=== PATIENT | female | born 1945 | race Caucasian/White ===

== ENCOUNTER → 2017-01-24 | Outpatient (CLI) | payer MEDICARE, BC ==
--- NOTE | 2017-01-24 14:20 | RAD ---
DATE: January 24, 2017 EXAM: DIGITAL SCREEN BILAT W/CAD HISTORY: Routine screening. COMPARISON: March 23, 2013. TECHNIQUE: 2D digital CC and MLO views of each breast were obtained. This study was interpreted with the benefit of Computerized Aided Detection (CAD). FINDINGS: The breast parenchyma demonstrates scattered fibroglandular densities, category B. There is no worrisome mass or area of architectural distortion. There are a few benign-appearing calcifications. There are no suspicious groupings of microcalcifications. IMPRESSION: Benign findings. BI-RADS CATEGORY: 2 BENIGN FINDING RECOMMENDED FOLLOW-UP: 12M 12 MONTH FOLLOW-UP PQRS compliance statement: Patient information was entered into a reminder system with a target due date for the next mammogram. Mammography is a sensitive method for finding small breast cancers, but it does not detect them all and is not a substitute for careful clinical examination. A negative mammogram does not negate a clinically suspicious finding and should not result in delay in biopsying a clinically suspicious abnormality. "Our facility is accredited by the [employer] Mammography Program."
== END | disposition home or self-care (01) ==
LOC: MAMMO 10:52
PROVIDERS: ATTEND Nurse Practitioner Family
DX: Z12.31 Encounter for screening mammogram for malignant neoplasm of breast (principal)
CPT/HCPCS: G0202; 77067

== ENCOUNTER 2018-02-13 09:12 | Emergency (ER) | payer MEDICARE, BC ==
[~2018-02-13] VITALS: Ht 154.9 cm; Wt 57.6 kg
--- NOTE | 2018-02-13 09:53 | PHYS DOC ---
Past History Past Medical History: High Cholesterol, Hypertension Smoking: Cigarettes, Less than 1pk/day Adult General Chief Complaint Chief Complaint: KNEE INJURY HPI HPI Patient is a 72 year old female who presents with complaining of injury to right knee. Patient states she had an accidental fall last night at her home and injured his right knee without loss of consciousness. Patient states she had the right knee edema and pain with bearing weight that getting worse today. Patient states she has osteoporosis and chronic back pain that getting worse today without significant injury to her back. Patient denies focal neuro deficit , fever and chills, nausea and vomiting. Review of Systems Review of Systems Constitutional: Denies fever or chills [] Eyes: Denies change in visual acuity, redness, or eye pain [] HENT: Denies nasal congestion or sore throat [] Respiratory: Denies cough or shortness of breath [] Cardiovascular: No additional information not addressed in HPI [] GI: Denies abdominal pain, nausea, vomiting, bloody stools or diarrhea [] : Denies dysuria or hematuria [] Musculoskeletal: Denies back pain, reports joint pain [] Integument: Denies rash or skin lesions [] Neurologic: Denies headache, focal weakness or sensory changes [] Endocrine: Denies polyuria or polydipsia [] All other systems were reviewed and found to be within normal limits, except as documented in this note. Current Medications Current Medications Current Medications Medications (Trade) Dose Ordered Sig/Thalia Start Time Stop Time Status Last Admin Dose Admin Acetaminophen/ Hydrocodone Bitart (Lortab 5/325) 1 tab 1X ONCE 02/13/18 10:00 02/13/18 10:01 Allergies Allergies Allergies Uncoded Allergies Type Severity Reaction Last Updated Verified ibuprophen Allergy Intermediate increased b/p 02/13/18 Physical Exam Physical Exam Constitutional: Well developed, well nourished, mild distress, non-toxic appearance. [] HENT: Normocephalic, atraumatic Eyes: PERRLA, EOMI, conjunctiva normal, no discharge. [] Neck: Normal range of motion, no tenderness, supple, no stridor. [] Cardiovascular:Heart rate regular rhythm, no murmur [] Lungs & Thorax: Bilateral breath sounds clear to auscultation [] Skin: Warm, dry, no erythema, no rash. [] Back: No midline right knee with moderate edema without deformity, limited range of motion with pain, no tenderness in the hip or ankle. Extremities: No tenderness, no cyanosis, no clubbing, ROM intact, no edema. [] Neurologic: Alert and oriented X 3, normal motor function, normal sensory function, no focal deficits noted. [] Psychologic: Affect normal, judgement normal, mood normal. [] EKG EKG [] Radiology/Procedures Radiology/[place] [address] IMAGING REPORT Signed PATIENT: BOGDAN ELIAS ACCOUNT: [id number] : 1945 LOCATION: ER AGE: 72 SEX: F EXAM STATUS: REG ER ORD. PHYSICIAN: BRIDGETTE HESTER MD REASON: faLL PROCEDURE: LUMBAR SPINE 2-3V 3 view lumbar spine and 4 view right knee 02/13/2018 Clinical indications: Right knee swelling and pain at the patella, back pain after fall. COMPARISON: None. FINDINGS: Right knee: There is a transverse fracture of the patella with mild distraction of the fracture fragments. Diffuse bony demineralization. Mild medial compartment joint space narrowing without osteophytosis. There is a small suprapatellar knee joint effusion. Prepatellar soft tissue thickening. Lumbar spine: Diffuse bony demineralization limiting bony detail. There are 5 nonrib-bearing lumbar-type vertebral bodies with the 1st considered L1. Mild to moderate L2 and mild L5 compression deformities, age indeterminate. There is mild multilevel lumbar spondylosis with minimal marginal osteophyte formation. Calcified aortoiliac atherosclerotic plaque. IMPRESSION: Right knee: 1. Transverse patellar fracture with mild distraction of the fracture fragments. 2. Small knee joint effusion. 3. Osteopenia. Lumbar spine: 1. Mild to moderate L2 and mild L5 compression deformities, age indeterminate. 2. Osteopenia. Electronically signed by: Kevin Khoury MD (02/13/2018 10:30 AM) [id number] DICTATED AND SIGNED BY: KEVIN KHOURY MD DATE: 02/13/18 1026 CC: BRIDGETTE HESTER MD; ERIK LANG ~ Course & Med Decision Making Course & Med Decision Making Pertinent Imaging studies reviewed. (See chart for details) Evaluation of patient in ER showed 72-year-old male patient with a fall yesterday and injured the right knee and increasing chronic back pain. Has right knee tenderness and limited range of motion. X-ray showed pattern of fracture. Patient had knee immobilizer in ER and felt better with [place]. Patient instructed to use her home walker and follow up with on-call orthopedic physician. Cally Disclaimer Dragon Disclaimer This electronic medical record was generated, in whole or in part, using a voice recognition dictation system. Departure Departure: Impression: Primary Impression: Right patella fracture Additional Impressions: Fall at home Fracture, lumbar vertebra, compression Tobacco abuse Tobacco abuse counseling Disposition: HOME, SELF-CARE (@1059) Condition: IMPROVED Referrals: ERIK LANG (PCP) Patient Instructions: Fall Prevention and Home Safety, Patellar Fracture, Adult , Smoking Cessation, Tips For Success Additional Instructions: Follow-up with conservation assistant orthopedic physician Dr. Ríos in one or two-days, call [phone] to make an appointment Use home walker Apply ice on the affected area Drink plenty of liquids Follow-up with your primary care physician in 3-5 days Return to ER if not getting better Scripts Hydrocodone Bit/Acetaminophen (NORCO 5-325 TABLET) 1 Each Tablet 1 TAB PO PRN Q6HRS PRN for PAIN, #20 TAB 0 Refills Prov: BRIDGETTE HESTER MD 02/13/18 Problem Qualifiers BRIDGETTE HESTER MD Feb 13, 2018 09:53
[2018-02-13] MEDS ORDERED: HYDROcodone/APAP 5/325MG 1 TAB TABLET PO ONE (10:00)
--- NOTE | 2018-02-13 10:33 | RAD ---
3 view lumbar spine and 4 view right knee 02/13/2018 Clinical indications: Right knee swelling and pain at the patella, back pain after fall. COMPARISON: None. FINDINGS: Right knee: There is a transverse fracture of the patella with mild distraction of the fracture fragments. Diffuse bony demineralization. Mild medial compartment joint space narrowing without osteophytosis. There is a small suprapatellar knee joint effusion. Prepatellar soft tissue thickening. Lumbar spine: Diffuse bony demineralization limiting bony detail. There are 5 nonrib-bearing lumbar-type vertebral bodies with the 1st considered L1. Mild to moderate L2 and mild L5 compression deformities, age indeterminate. There is mild multilevel lumbar spondylosis with minimal marginal osteophyte formation. Calcified aortoiliac atherosclerotic plaque. IMPRESSION: Right knee: 1. Transverse patellar fracture with mild distraction of the fracture fragments. 2. Small knee joint effusion. 3. Osteopenia. Lumbar spine: 1. Mild to moderate L2 and mild L5 compression deformities, age indeterminate. 2. Osteopenia. Electronically signed by: Chidi Khoury MD (02/13/2018 10:30 AM) [id number]
[2018-02-13 10:42] VITALS: BP 142/66
[2018-02-13] MEDS ORDERED: HYDR-3165 PO (11:06)
== END 2018-02-13 11:15 | disposition home or self-care (01) ==
LOC: ER 09:12
DX: S82.031A Displaced transverse fracture of right patella, initial encounter for closed fracture (principal); S32.028A Other fracture of second lumbar vertebra, initial encounter for closed fracture; S32.058A Other fracture of fifth lumbar vertebra, initial encounter for closed fracture; M85.89 Other specified disorders of bone density and structure, multiple sites; F17.210 Nicotine dependence, cigarettes, uncomplicated; Z71.6 Tobacco abuse counseling; W18.30XA Fall on same level, unspecified, initial encounter; Y93.89 Activity, other specified; Y92.098 Other place in other non-institutional residence as the place of occurrence of the external cause; Y99.8 Other external cause status; Z88.6 Allergy status to analgesic agent
CPT/HCPCS: 29505; 72100; 73564; 99283

== ENCOUNTER → 2018-10-02 | Outpatient (CLI) | payer MEDICARE, BC ==
[~2018-10-02] MED LIST: HYDR-3165 PO
--- NOTE | 2018-10-02 16:58 | RAD ---
EXAM: AP, oblique and lateral views of the right knee DATE: 10/02/2018 10:55 AM INDICATION: Patellar fracture post reduction and fixation COMPARISON: 07/25/2018, 02/13/2018 FINDINGS: Changes of reduction and fixation of the known patellar fracture is seen with incomplete screw fixation of the fractured fragment. However there is suggestion of bony bridging along the fracture plane suggesting progressive healing. No significant knee joint effusion. Decreased bone mineral density. IMPRESSION: Progressive healing of the lower pole patellar fracture with suggestion of bony bridging. Electronically signed by: Travis Reddy MD (10/02/2018 4:56 PM) [facility]
== END | disposition home or self-care (01) ==
LOC: DXRAD 10:48
PROVIDERS: ATTEND Orthopaedic Surgery Sports Medicine
DX: S82.031 Displaced transverse fracture of right patella (principal)
CPT/HCPCS: 73562

== ENCOUNTER → 2018-10-17 | Outpatient (CLI) | payer MEDICARE, BC ==
--- NOTE | 2018-10-17 12:39 | RAD ---
EXAM: Dual energy x-ray absorptiometry (DEXA). HISTORY: Postmenopausal female presents for osteoporosis screening. COMPARISON: None. TECHNIQUE: Dual energy x-ray absorptiometry of the lumbar spine and right hip was performed. Calculation of bone mineral density based on standard deviations above or below the expected young adult normal value (T-score) was completed. FINDINGS: The average bone mineral density in the 1st through 4th lumbar vertebrae is 0.635 g/cmxcm, corresponding with a T-score of -4.5. The average total bone mineral density in the right hip is 0.464 g/cmxcm, corresponding with a T-score of -4.0. IMPRESSION: Osteoporosis. Note: Definitions established by the World Health Organization: 1. Normal: T-score is -1.0 or above. 2. Osteopenia: T-score is between -1.0 and -2.5 . 3. Osteoporosis: T-score is -2.5 or below. Electronically signed by: Cecilia Bose MD (10/17/2018 12:36 PM) [facility]
--- NOTE | 2018-10-18 11:17 | RAD ---
DATE: 10/17/2018 EXAM: MAMMO KEYLA SCREENING BILATERAL HISTORY: Routine screening COMPARISON: 03/23/2013, 01/24/2017 mammographic exams This study was interpreted with the benefit of Computerized Aided Detection (CAD). Breast Density: SCATTERED The breast parenchyma shows scattered fibroglandular densities. Breast parenchyma level B. FINDINGS: Benign calcifications are present. No dominant mass or distortion. IMPRESSION: Stable BI-RADS CATEGORY: 1 NEGATIVE RECOMMENDED FOLLOW-UP: 12M 12 MONTH FOLLOW-UP PQRS compliance statement: Patient information was entered into a reminder system with a target due date in one year for the next mammogram. Mammography is a sensitive method for finding small breast cancers, but it does not detect them all and is not a substitute for careful clinical examination. A negative mammogram does not negate a clinically suspicious finding and should not result in delay in biopsying a clinically suspicious abnormality. "Our facility is accredited by the [employer] Mammography Program."
== END | disposition home or self-care (01) ==
LOC: DXRAD 09:52
PROVIDERS: ATTEND Physician Assistant
DX: Z12.31 Encounter for screening mammogram for malignant neoplasm of breast (principal); S82.031 Displaced transverse fracture of right patella; M81.0 Age-related osteoporosis without current pathological fracture; N64.89 Other specified disorders of breast; N95.9 Unspecified menopausal and perimenopausal disorder; X58.XXXD Exposure to other specified factors, subsequent encounter
CPT/HCPCS: 77063; 77067; 77080

== ENCOUNTER → 2019-03-01 | Outpatient (CLI) | payer MEDICARE, BC ==
--- NOTE | 2019-03-01 12:18 | RAD ---
EXAM: Chest, 2 views. HISTORY: Decreased oxygen saturation. COMPARISON: None. FINDINGS: 2 views of the chest are obtained. There is diffuse increased interstitial opacity superimposed on emphysema. There is cardiomegaly. There is no pleural effusion or pneumothorax. IMPRESSION: 1. Suspected trace congestion or chronic interstitial changes superimposed on emphysema. 2. Cardiomegaly. Electronically signed by: Cecilia Bose MD (03/01/2019 12:14 PM) [place] [id number]
== END | disposition home or self-care (01) ==
LOC: PMG 11:19
PROVIDERS: ATTEND Physician Assistant
DX: I51.7 Cardiomegaly (principal)
CPT/HCPCS: 71046

== ENCOUNTER → 2019-05-24 | Outpatient (CLI) | payer MEDICARE, BC ==
[~2019-05-24] MED LIST changes: +REGADENOSON 0.4 MG/5 ML DISP.SYRIN. IV ONE
--- NOTE | 2019-05-24 13:02 | RAD ---
MR#: [id number] Date of Study: 05/24/2019 Ordering Physician: KOREY PEOPLES, Referring Physician: JUANITA LUJAN Tech: RT Kelley (R) (N) APPROVED REPORT Test Type: Pharmacological Stress Nurse/Tech: Lori Mak Test Indications: CAD Cardiac History: No known cardiac Resting Heart Rate: 90 bpm Resting Blood Pressure: 145/58mmHg Pretest Chest Pain: None Pharm. Details Pharmacologic stress testing was performed using 0.4mg per 5ml of regadenoson given intravenously ove r 7-10 seconds. Stress Symptoms Dyspnea, light headed POST EXERCISE Reason for Termination: Infusion complete Max HR: 115 bpm Blood Pressure response to exercise: Normal blood pressure response during stress. Heart Rate response to exercise: Increased / normal Chest Pain: No. Arrhythmia: No. ST Change: No. INTERPRETATION Stress EKG Conclusion: The resting EKG shows a sinus rhythm. The stress EKG shows no significant changes from baseline. No EKG evidence of stressed induced ischemia. Imaging Protocol IMAGE PROTOCOL: Rest Tc-99m/stress Tc-99m 1 day Rest: Stress: Viability: Radiopharm.Tc99m KcpvylinuVw23n Sestamibi [id number] 33mCi Duration 15min. 15min. Img Date 05/24/2019 05/24/2019 Inj-Img [id number]. 60min. Rest Admin Site:IV - Left AntecubitalAdministrator: RT Kelley (R)(N) Stress Admin Site: IV - Left AntecubitalAdministrator: RT Kelley (R)(N) STRESS DATA End Diast. Vol.89.0mlAv. Heart Rate86.0bpm End Syst. Vol.17.0mlCO Index BSA0.0L/min Myocardial Ukld892.0gEject. Eaontaoq37.0% Stress Rates Pk. Fill Rate2.81EDV/secLVtime Pk. Fill 106.41msec Pk. Empty Rate3.52ESV/secLVtime Pk. Omzfg923.80msec 03/16 Pk. Fill1.91EDV/sec Stress Scores Regional WT1.00Summed WT1.00 Regional WM0.00Summed WM0.00 LV Perfusion The stress scans showed no significant defects. The rest scans showed no significant defects. Nuclear imaging shows no reversible ischemia or infarct. Wall Motion Left ventricular systolic function is normal with no regional wall motion abnormalities and an ejecti on fraction of 69%. LV Perf. Quant 17 Seg. SSS0.00 17 Seg. SRS0.00 17 Seg. SDS0.00 Stress Defect Extent (% LAD)0.00Rest Defect Extent (% LAD)0.00Rev. Defect Extent (% LAD)0.00 Stress Defect Extent (% LCX) 0.00Rest Defect Extent (% LCX)0.00Rev. Defect Extent (% LCX)0.00 Stress Defect Extent (% RCA)0.00Rest Defect Extent (% RCA)0.00Rev. Defect Extent (% RCA)0.00 Stress Defect Extent (% KEYSHAWN)0.00Rest Defect Extent (% KEYSHAWN)0.00Rev. Defect Extent (% KEYSHAWN)0.00 Conclusion 1. No EKG evidence of stressed induced ischemia. 2. Nuclear imaging shows no reversible ischemia or infarct. 3. Normal left ventricular systolic function with an ejection fraction of 69%. 4. Low risk Lexiscan nuclear stress test. Signed by : Garfield Torres MD Electronically Approved : 05/24/2019 13:02:33
== END ==
LOC: NM 07:53
PROVIDERS: ATTEND Internal Medicine Cardiovascular Disease
DX: I25.10 Atherosclerotic heart disease of native coronary artery without angina pectoris (principal)
CPT/HCPCS: 78452; 93017; A9500; J2785

== ENCOUNTER → 2020-03-10 | Outpatient (CLI) | payer MEDICARE, BC ==
[~2020-03-10] MED LIST changes: -REGADENOSON 0.4 MG/5 ML DISP.SYRIN. IV ONE
--- NOTE | 2020-03-12 09:28 | RAD ---
DATE: 03/10/2020 10:32 AM EXAM: DIGITAL SCREEN BILAT W/CAD HISTORY: Screening COMPARISON: 01/24/2017, 03/23/2013 Bilateral full field craniocaudal and mediolateral oblique images were obtained using digital technique. This study was interpreted with the benefit of Computerized Aided Detection (CAD). FINDINGS: Breast Density: SCATTERED The breast parenchyma shows scattered fibroglandular densities. Breast parenchyma level B No suspicious masses, microcalcifications or architectural distortion is present to suggest malignancy in either breast. The visualized axillae are unremarkable. IMPRESSION: No mammographic evidence of malignancy. BI-RADS CATEGORY: 1 NEGATIVE RECOMMENDED FOLLOW-UP: 12M 12 MONTH FOLLOW-UP Annual screening mammography is recommended, unless clinically indicated sooner based on symptoms or change in physical exam. PQRS compliance statement: Patient information was entered into a reminder system with a target due date for the next mammogram. Mammography is a sensitive method for finding small breast cancers, but it does not detect them all and is not a substitute for careful clinical examination. A negative mammogram does not negate a clinically suspicious finding and should not result in delay in biopsying a clinically suspicious abnormality. "Our facility is accredited by the [employer] Mammography Program."
== END ==
LOC: MAMMO 09:45
PROVIDERS: ATTEND Physician Assistant
DX: Z12.31 Encounter for screening mammogram for malignant neoplasm of breast (principal)
CPT/HCPCS: 77067

== ENCOUNTER → 2021-03-16 | Outpatient (CLI) | payer MEDICARE, BC ==
--- NOTE | 2021-03-16 12:04 | RAD ---
Bilateral digital screening 2-D and 3-D (digital breast tomosynthesis) mammogram: Reason for examination: Routine screening. Comparison: Mammograms from 03/10/2020 and 10/17/2018. Interpretation was made with the benefit of CAD. FINDINGS: Breast density: Category B. There are scattered areas of fibroglandular density. No suspicious breast mass, malignant appearing calcifications, or architectural distortion is seen. IMPRESSION: No evidence of malignancy. Assessment: BI-RADS 1. Negative. Recommendation: Routine screening mammograms. The patient will receive a letter with the results in the mail. Patient information will be entered i nto the mammography reminder system with a target recall date for the next mammogram. A reminder inna er will be generated. Electronically signed by: Sarah Berman MD (03/16/2021 12:01 PM) [id number]
== END ==
LOC: MAMMO 10:53
PROVIDERS: ATTEND Physician Assistant
DX: Z12.31 Encounter for screening mammogram for malignant neoplasm of breast (principal)
CPT/HCPCS: 77067